=== PATIENT | female | born 1950 | race African-American/Black ===

== ENCOUNTER → 2017-06-10 | Outpatient (CLI) | payer MEDICARE, BC ==
--- NOTE | ~2017-06-10 | BD1 ---
[facility] A Service of [facility] & [facility] RADIOLOGY TEXT RESULTS PATIENT: ASAD BAZZI LOCATION: [facility] : 54 UNIT #: [id number] AGE: [address]: Pebbles Topete APRN SEX: F ORDER DR: [id number] [facility] [address] [place], [place] [address] [id number] O MR#: [id number] Acc #: [id number] NAME: ASAD BAZZI : 1950 SEX: F STUDY DATE/TIME: 06/10/2017 14:40 UNIT: [facility] ROOM: STUDY DESCRIPTION: BD Dexa Bone Dens 1+ Site Attending Physician: Pebbles Topete A.P.R.N. Ordering Physician: Pebbles Topete A.P.R.N. Primary Care Physician: Anastasia Owusu M.D. MEDICAL IMAGING REPORT This report is preliminary unless electronic signature is present EXAM DXA scan, 06/10/2017 HISTORY Status post menopause with no hormone replacement therapy. Osteopenia. Hysterectomy. Family history of breast carcinoma. Hypertension with blood pressure medication. Lumbar spine fusion. Family history of osteoporosis in mother. FINDINGS Bone mineral density in the lumbar spine from L2 through L4 was 0.671 g/cm2 which is 4.7 standard deviations below the mean when compared to the young adult reference population which is characteristic of osteoporosis. This is 2.6 standard deviations below the mean when compared to the age-matched population. Bone mineral density in the left femoral neck was 0.549 g/cm2 which is 2.8 standard deviations below the mean when compared to the young adult reference population which is characteristic of osteoporosis. This is 1.5 standard deviations below the mean when compared to the age-matched population. IMPRESSION Bone mineral density in the lumbar spine and the left hip characteristic of osteoporosis. Dictated by... Hossein Jean Baptiste M.D. THIS IS AN ELECTRONICALLY VERIFIED REPORT Hossein Jean Baptiste M.D. at 06/11/2017 7:14 AM GREG/coral ST[facility]. [facility] A Service of [facility] & [facility] RADIOLOGY TEXT RESULTS PATIENT: ASAD BAZZI [id number] : 54 UNIT #: [id number] AGE: [address]: Pebbles Topete APRN SEX: F ORDER DR: TD: 06/11/2017 00:29 JOB #: [id number] MEDICAL IMAGING REPORT Page 1 of 1 COPY
== END | disposition home or self-care (01) ==
LOC: CWCC 14:18
DX: Z13.820 Encounter for screening for osteoporosis (principal); Z78.0 Asymptomatic menopausal state; M81.0 Age-related osteoporosis without current pathological fracture
CPT/HCPCS: 77080